=== PATIENT | female | born 1980 | race Caucasian/White ===

== ENCOUNTER → 2021-12-31 | Outpatient (CLI) | payer OTHER ==
--- NOTE | 2021-12-31 16:37 | XRAY Report ---
PROCEDURE: Chest 2 View X-Ray INDICATIONS: UPPER RESPIRATORY INFECTION TECHNIQUE: 2 view(s) of the chest. COMPARISON: None. FINDINGS: Surgical changes and devices: None. Lungs and pleura: No pleural effusions or pneumothorax. There is a very faint appearance of increase d nodular opacity overlying the right upper lobe Mediastinum: Mediastinal contours are normal. Heart size is normal. Bones and chest wall: No suspicious bony abnormalities. Soft tissues appear unremarkable. IMPRESSION: Faint appearance of increased nodular opacity overlying the right upper lobe. While this could be vascular artifactual nature, underlying nodule cannot be excluded. Recommend short interval imaging follow-up with chest x-ray or CT chest for further evaluation. Reviewed by: Amena Chandler MD on 12/31/2021 4:36 PM PDT Approved by: Amena Chandler MD on 12/31/2021 4:36 PM PDT Station ID: [id number]
== END ==
LOC: DI.N 15:28
PROVIDERS: ATTEND Physician Assistant
DX: J18.1 Lobar pneumonia, unspecified organism (principal); J06.9 Acute upper respiratory infection, unspecified; Z20.822 Contact with and (suspected) exposure to COVID-19

== ENCOUNTER 2023-06-17 10:07 | Outpatient (CLI) | payer OTHER | END 2023-06-17 10:08 | disposition short-term general hospital (02) | LOC: EMS 10:07 | DX: R60.1 Generalized edema (principal); R06.02 Shortness of breath; R09.89 Other specified symptoms and signs involving the circulatory and respiratory systems; L29.9 Pruritus, unspecified | CPT/HCPCS: A0425; A0429 ==

== ENCOUNTER 2024-05-22 13:45 | Outpatient (CLI) | payer OTHER ==
--- NOTE | 2024-05-22 16:54 | XRAY Report ---
PROCEDURE: Ankle 3+V RT INDICATIONS: RT FOOT PAIN TECHNIQUE: 3 views of the ankle were acquired. COMPARISON: None. FINDINGS: No acute fracture or dislocation. Ankle mortise is preserved on the nonweightbearing view. No talar d ome osteochondral defect. Achilles and plantar calcaneal enthesopathy. IMPRESSION: No acute fracture or dislocation of the right ankle. Reviewed by: Santhosh Aquino MD on 05/22/2024 4:53 PM PDT Approved by: Santhosh Aquino MD on 05/22/2024 4:53 PM PDT Station ID: [id number]
--- NOTE | 2024-05-22 16:56 | XRAY Report ---
PROCEDURE: Foot 1-2V RT INDICATIONS: RT FOOT PAIN TECHNIQUE: 2 views of the foot were acquired. COMPARISON: Right ankle x-ray 05/22/2024 FINDINGS: No acute fracture or dislocation. The Lisfranc interval is preserved on the nonweightbearing view. Hy perostosis of the 2nd metatarsal cortical shaft, likely secondary to a prior, healed stress fracture. The joint spaces are preserved. Small accessory navicular. IMPRESSION: No acute fracture or dislocation of the right foot. Reviewed by: Santhosh Aquino MD on 05/22/2024 4:55 PM PDT Approved by: Santhosh Aquino MD on 05/22/2024 4:55 PM PDT Station ID: [id number]
== END 2024-05-22 14:00 | disposition home or self-care (01) ==
LOC: DI.N 13:45
PROVIDERS: ATTEND Physician Assistant Medical
DX: M77.31 Calcaneal spur, right foot (principal); M85.871 Other specified disorders of bone density and structure, right ankle and foot